=== PATIENT | male | born 1965 | race Caucasian/White ===

== ENCOUNTER 2018-10-25 09:57 | Day surgery (SDC) | payer OTHER ==
[~2018-10-25] VITALS: Ht 167.6 cm; Wt 84.0 kg
[2018-10-25 10:47] VITALS: Ht 167.6 cm; Wt 84.0 kg
[2018-10-25] MEDS ORDERED: NO MEDS. (10:56)
[2018-10-25 11:09] VITALS: BP 128/83; PULSE 68; RESP 20
[2018-10-25] MEDS ORDERED: MIDAZOLAM 1 MG/ML 2 ML INJ ONE ×2 (12:13→12:37)
[2018-10-25 12:20] VITALS: BP 114/72; PULSE 62; RESP 14
[2018-10-25] MEDS ORDERED: MEPERIDINE 50 MG INJ ONE (12:35)
[2018-10-25] MEDS ORDERED: GLYCOPYRROLATE 0.4 MG INJ ONE (15:23)
== END 2018-10-25 13:35 | disposition home or self-care (01) ==
LOC: GIL 09:57
PROVIDERS: ATTEND Internal Medicine Gastroenterology
DX: Z12.11 Encounter for screening for malignant neoplasm of colon (principal); D12.5 Benign neoplasm of sigmoid colon; K64.8 Other hemorrhoids
CPT/HCPCS: 45380; J2175; J2250; Z7610; 88305